=== PATIENT | female | born 1965 | race Caucasian/White ===

== ENCOUNTER 2019-06-01 12:51 | Observation (INO) | payer OTHER, MEDICAID ==
[~2019-06-01] VITALS: Ht 170.2 cm; Wt 65.9 kg
[2019-06-01 13:58] LABS: BASOPHIL % 0.8 % (0-2); PLATELET COUNT 307 x10^3mcL (130-400); RED CELL DISTRIBUTION WIDTH 14.3 % (11.5-14.5)
[2019-06-01 14:14] LABS: CALCIUM 8.8 mg/dL (8.5-10.1); CARBON DIOXIDE 22.4 mmol/L (21-32); CHLORIDE SERUM 103 mmol/L (98-107); CREATININE SERUM 0.6 mg/dL (0.6-1.0); GFR1 > 60 mL/min; GLUCOSE SERUM 294 mg/dL (74-106); POTASSIUM SERUM 4.5 mmol/L (3.5-5.1); SODIUM SERUM 139 mmol/L (136-145)
[2019-06-01 14:19] LABS: ALBUMIN 3.6 g/dL (3.4-5.0); ALKALINE PHOSPHATASE 96 U/L (46-116); ALT/SGPT 18 U/L (14-59); AST/SGOT 27 U/L (15-37); BILIRUBIN TOTAL 0.6 mg/dL (0.20-1.00); TOTAL PROTEIN, SERUM 6.5 g/dL (6.4-8.2)
[2019-06-01] MEDS ORDERED: RANEXA1000 M2 PO (16:01)
[2019-06-01] MEDS ORDERED: SYNTHROID0.175 MG PO (16:03)
[2019-06-01] MEDS ORDERED: SEROQUEL200 MG PO (16:03)
[2019-06-01] MEDS ORDERED: ATORVASTATIN CA40 M1 PO (16:04)
[2019-06-01] MEDS ORDERED: COREG12.5 MG PO (16:04)
[2019-06-01] MEDS ORDERED: NOR10T PO (16:04)
[2019-06-01] MEDS ORDERED: NITROGLYCERIN0.4 MG SL (16:05)
[2019-06-01] MEDS ORDERED: PANTOPRAZOLE SO40 M1 PO (16:05)
[2019-06-01 16:38] VITALS: BP 145/81
[2019-06-01 16:43] VITALS: Ht 170.2 cm; Wt 65.9 kg
[2019-06-01 21:08] VITALS: BP 104/51
[2019-06-02 05:38] VITALS: BP 108/62
[2019-06-02 07:24] LABS: T3 TOTAL 0.71 ng/mL
[2019-06-02 07:34] LABS: CARBON DIOXIDE 25.7 mmol/L (21-32); CHLORIDE SERUM 107 mmol/L (98-107); CREATININE SERUM 0.6 mg/dL (0.6-1.0); GFR1 > 60 mL/min; GLUCOSE SERUM 180 mg/dL (74-106); MAGNESIUM 1.9 mg/dL (1.8-2.4); POTASSIUM SERUM 3.7 mmol/L (3.5-5.1); SODIUM SERUM 143 mmol/L (136-145)
[2019-06-02 07:37] LABS: BASOPHIL % 0.6 % (0-2); PLATELET COUNT 284 x10^3mcL (130-400); RED CELL DISTRIBUTION WIDTH 14.3 % (11.5-14.5)
[2019-06-02 07:52] LABS: FREE T4 1.31 ng/dL (0.76-1.46); FREE THYROXINE INDEX 3.2 ug/dL (1.4-4.5); T4(THYROXINE) 8.3 ug/dL (4.7-13.3)
[2019-06-02] MEDS ORDERED: BRILINTA90 M1 PO (09:42)
[2019-06-02 12:09] VITALS: BP 126/69
[2019-06-02 13:55] VITALS: BP 116/67
[2019-06-02 17:06] VITALS: BP 146/46
[2019-06-02 20:27] VITALS: BP 107/67
== END 2019-06-02 22:30 | disposition short-term general hospital (02) | DRG 311 ==
LOC: ED 12:51 → DU 15:27
PROVIDERS: Emergency Medicine; ADMIT Internal Medicine Pulmonary Disease
DX: I24.9 Acute ischemic heart disease, unspecified (principal); I11.9 Hypertensive heart disease without heart failure; I25.10 Atherosclerotic heart disease of native coronary artery without angina pectoris; F17.218 Nicotine dependence, cigarettes, with other nicotine-induced disorders; E11.9 Type 2 diabetes mellitus without complications; Z95.5 Presence of coronary angioplasty implant and graft
CPT/HCPCS: 82962; 84439; G0378; J1885; J2270; J2405; Q0092

== ENCOUNTER 2019-10-13 14:06 | Observation (INO) | payer OTHER, MEDICAID ==
[~2019-10-13] VITALS: Ht 170.2 cm; Wt 68.0 kg
[~2019-10-13 14:06] MED LIST: ATORVASTATIN CA40 M1 PO; BRILINTA90 M1 PO; COREG12.5 MG PO; NITROGLYCERIN0.4 MG SL; NOR10T PO; PANTOPRAZOLE SO40 M1 PO; RANEXA1000 M2 PO; SEROQUEL200 MG PO; SYNTHROID0.175 MG PO
[2019-10-13 14:26] VITALS: Ht 170.2 cm; Wt 68.0 kg
[2019-10-13 16:23] LABS: BASOPHIL % 0.6 % (0-2); PLATELET COUNT 330 x10^3mcL (130-400)
[2019-10-13 16:32] LABS: CALCIUM 9.8 mg/dL (8.5-10.1); CARBON DIOXIDE 26.5 mmol/L (21-32); CHLORIDE SERUM 103 mmol/L (98-107); CREATININE SERUM 0.7 mg/dL (0.6-1.0); GFR1 > 60 mL/min; GLUCOSE SERUM 88 mg/dL (74-106); POTASSIUM SERUM 3.8 mmol/L (3.5-5.1); SODIUM SERUM 140 mmol/L (136-145)
[2019-10-13] MEDS ORDERED: TRULICITY0.75 MG/0. (18:42)
[2019-10-13] MEDS ORDERED: LANTI (18:44)
[2019-10-13] MEDS ORDERED: COREG3.125 MG (18:45)
[2019-10-13] MEDS ORDERED: LIPITOR10 MG (18:45)
[2019-10-13] MEDS ORDERED: NOVOLOG100 U/ML (18:45)
[2019-10-13] MEDS ORDERED: PROTONIX20 MG (18:45)
[2019-10-13] MEDS ORDERED: ASPIR 8181 MG (18:45)
[2019-10-13] MEDS ORDERED: MOBIC7.5 MG (18:46)
[2019-10-13 23:58] VITALS: BP 123/80
[2019-10-14 06:19] VITALS: BP 94/61
[2019-10-14 07:18] LABS: BASOPHIL % 0.9 % (0-2); PLATELET COUNT 256 x10^3mcL (130-400); RED CELL DISTRIBUTION WIDTH 13.8 % (11.5-14.5)
[2019-10-14 07:35] LABS: ALKALINE PHOSPHATASE 72 U/L (46-116); ALT/SGPT 36 U/L (14-59); AST/SGOT 25 U/L (15-37); BILIRUBIN TOTAL 0.3 mg/dL (0.20-1.00); CALCIUM 8.1 mg/dL (8.5-10.1); CARBON DIOXIDE 27.9 mmol/L (21-32); CHLORIDE SERUM 107 mmol/L (98-107); CREATININE SERUM 0.8 mg/dL (0.6-1.0); GFR1 > 60 mL/min; GLUCOSE SERUM 105 mg/dL (74-106); MAGNESIUM 1.8 mg/dL (1.8-2.4); POTASSIUM SERUM 3.8 mmol/L (3.5-5.1); SODIUM SERUM 143 mmol/L (136-145)
[2019-10-14 07:43] LABS: ALBUMIN 3.1 g/dL (3.4-5.0)
[2019-10-14 09:08] VITALS: BP 114/63
[2019-10-14 09:45] VITALS: BP 100/66
[2019-10-14] MEDS ORDERED: ALEVE220 M1 PO (11:47)
[2019-10-14 11:57] VITALS: BP 100/66
[2019-10-14 12:29] VITALS: BP 121/69
== END 2019-10-14 13:11 | disposition home or self-care (01) ==
LOC: ED 14:06 → DU 18:52
PROVIDERS: Emergency Medicine; Internal Medicine Pulmonary Disease; ADMIT Hospitalist
DX: R55 Syncope and collapse (principal); I25.10 Atherosclerotic heart disease of native coronary artery without angina pectoris; E11.9 Type 2 diabetes mellitus without complications; G89.29 Other chronic pain; M25.552 Pain in left hip; R07.89 Other chest pain; M51.36 Other intervertebral disc degeneration, lumbar region; E78.5 Hyperlipidemia, unspecified; E03.9 Hypothyroidism, unspecified; F41.9 Anxiety disorder, unspecified; Z23 Encounter for immunization
CPT/HCPCS: 82962; 83880; 90732; C9113; G0378; J1644; J2270; J2405; J7030

== ENCOUNTER 2019-10-17 12:10 | Emergency (ER) | payer OTHER, MEDICAID ==
[~2019-10-17] VITALS: Ht 167.6 cm; Wt 67.1 kg
[~2019-10-17 12:10] MED LIST changes: +ALEVE220 M1 PO; +ASPIR 8181 MG; +COREG3.125 MG; +LANTI; +LIPITOR10 MG; +MOBIC7.5 MG; +NOVOLOG100 U/ML; +PROTONIX20 MG; +TRULICITY0.75 MG/0.
[2019-10-17 12:54] VITALS: Ht 167.6 cm; Wt 67.1 kg
[2019-10-17 15:10] VITALS: BP 96/79
== END 2019-10-17 15:10 | disposition home or self-care (01) ==
LOC: ED 12:10
DX: M54.5 Low back pain (principal); M25.552 Pain in left hip; G89.29 Other chronic pain; R26.2 Difficulty in walking, not elsewhere classified; E11.9 Type 2 diabetes mellitus without complications; Z88.1 Allergy status to other antibiotic agents; Z88.8 Allergy status to other drugs, medicaments and biological substances
CPT/HCPCS: J1885; J2270

== ENCOUNTER 2019-10-25 17:25 | Observation (INO) | payer OTHER, MEDICAID ==
[~2019-10-25] VITALS: Ht 167.6 cm; Wt 69.5 kg
[2019-10-25 17:50] VITALS: Ht 167.6 cm; Wt 69.5 kg
[2019-10-25 19:02] LABS: BASOPHIL % 1.2 % (0-2); PLATELET COUNT 297 x10^3mcL (130-400); RED CELL DISTRIBUTION WIDTH 13.9 % (11.5-14.5)
[2019-10-25 19:07] LABS: CALCIUM 9.4 mg/dL (8.5-10.1); CARBON DIOXIDE 25.9 mmol/L (21-32); CHLORIDE SERUM 102 mmol/L (98-107); CREATININE SERUM 0.8 mg/dL (0.6-1.0); GFR1 > 60 mL/min; GLUCOSE SERUM 246 mg/dL (74-106); POTASSIUM SERUM 4.4 mmol/L (3.5-5.1); SODIUM SERUM 137 mmol/L (136-145)
[2019-10-25 19:12] LABS: ALBUMIN 3.9 g/dL (3.4-5.0); ALKALINE PHOSPHATASE 100 U/L (46-116); ALT/SGPT 27 U/L (14-59); AST/SGOT 14 U/L (15-37); BILIRUBIN TOTAL 0.3 mg/dL (0.20-1.00); TOTAL PROTEIN, SERUM 7.4 g/dL (6.4-8.2)
[2019-10-25] MEDS ORDERED: LANTI SQ (19:54)
[2019-10-25] MEDS ORDERED: COREG12.5 MG PO (19:56)
[2019-10-25] MEDS ORDERED: LIPITOR40 MG PO (19:56)
[2019-10-25] MEDS ORDERED: ASPIRIN ADULT L81 M5 PO (19:56)
[2019-10-25] MEDS ORDERED: CYMBALTA60 M1 PO (19:56)
[2019-10-25] MEDS ORDERED: PRO40 PO (19:56)
[2019-10-25] MEDS ORDERED: NOVI SQ (19:56)
[2019-10-25] MEDS ORDERED: RANEXA1000 M2 PO (19:57)
[2019-10-25] MEDS ORDERED: NORCO 10-325 T1 EACH PO (19:57)
[2019-10-25] MEDS ORDERED: TIROSINT150 MC1 PO (19:57)
[2019-10-25] MEDS ORDERED: SERO100 PO (19:57)
[2019-10-25] MEDS ORDERED: MORPHABOND ER15 MG PO (19:57)
[2019-10-25 21:15] VITALS: BP 117/74
[2019-10-26 01:07] VITALS: BP 150/66
[2019-10-26 05:49] VITALS: BP 107/67
[2019-10-26 09:16] VITALS: BP 109/68
[2019-10-26 13:14] VITALS: BP 117/69
[2019-10-26 17:04] VITALS: BP 100/61
[2019-10-26 21:17] VITALS: BP 91/62
[2019-10-27 05:58] VITALS: BP 114/68
[2019-10-27 06:28] LABS: PLATELET COUNT 232 x10^3mcL (130-400); RED CELL DISTRIBUTION WIDTH 13.7 % (11.5-14.5)
[2019-10-27 06:58] LABS: ALBUMIN 4.2 g/dL (3.4-5.0); ALKALINE PHOSPHATASE 76 U/L (46-116); ALT/SGPT 26 U/L (14-59); AST/SGOT 17 U/L (15-37); BILIRUBIN TOTAL 0.57 mg/dL (0.20-1.00); CALCIUM 9.4 mg/dL (8.5-10.1); CARBON DIOXIDE 32.6 mmol/L (21-32); CHLORIDE SERUM 102 mmol/L (98-107); GFR1 > 60 mL/min; GLUCOSE SERUM 186 mg/dL (74-106); POTASSIUM SERUM 3.7 mmol/L (3.5-5.1); SODIUM SERUM 141 mmol/L (136-145); TOTAL PROTEIN, SERUM 7.3 g/dL (6.4-8.2)
[2019-10-27 07:24] VITALS: BP 84/53
[2019-10-27] MEDS ORDERED: FIORICET1 CAP PO (09:58)
[2019-10-27] MEDS ORDERED: TREXIMET1 TAB PO (09:58)
[2019-10-27 10:35] VITALS: BP 126/71
[2019-10-27 11:17] VITALS: BP 126/71
== END 2019-10-27 12:15 | disposition home or self-care (01) ==
LOC: ED 17:25 → DU 19:57
PROVIDERS: Emergency Medicine; ADMIT Internal Medicine Pulmonary Disease
DX: R07.89 Other chest pain (principal); E11.9 Type 2 diabetes mellitus without complications; I10 Essential (primary) hypertension; G43.909 Migraine, unspecified, not intractable, without status migrainosus; F32.9 Major depressive disorder, single episode, unspecified; I25.10 Atherosclerotic heart disease of native coronary artery without angina pectoris
CPT/HCPCS: 82962; 83880; C9113; G0378; J1815; J1940; J2405; J7030; P9047

== ENCOUNTER 2019-11-03 16:25 | Observation (INO) | payer OTHER, MEDICAID ==
[~2019-11-03] VITALS: Ht 167.6 cm; Wt 73.5 kg
[~2019-11-03 16:25] MED LIST changes: +ASPIRIN ADULT L81 M5 PO; +CYMBALTA60 M1 PO; +FIORICET1 CAP PO; +LANTI SQ; +LIPITOR40 MG PO; +MORPHABOND ER15 MG PO; +NORCO 10-325 T1 EACH PO; +NOVI SQ; +PRO40 PO; +SERO100 PO; +TIROSINT150 MC1 PO; +TREXIMET1 TAB PO
[2019-11-03 17:12] LABS: BASOPHIL % 0.4 % (0-2); PLATELET COUNT 239 x10^3mcL (130-400); RED CELL DISTRIBUTION WIDTH 14.3 % (11.5-14.5)
[2019-11-03 17:23] LABS: CALCIUM 9.3 mg/dL (8.5-10.1); CARBON DIOXIDE 33.7 mmol/L (21-32); CHLORIDE SERUM 105 mmol/L (98-107); CREATININE SERUM 0.8 mg/dL (0.6-1.0); GFR1 > 60 mL/min; GLUCOSE SERUM 99 mg/dL (74-106); POTASSIUM SERUM 3.8 mmol/L (3.5-5.1); SODIUM SERUM 145 mmol/L (136-145)
[2019-11-03 17:28] LABS: ALKALINE PHOSPHATASE 83 U/L (46-116); ALT/SGPT 39 U/L (14-59); AST/SGOT 31 U/L (15-37); BILIRUBIN TOTAL 0.6 mg/dL (0.20-1.00); TOTAL PROTEIN, SERUM 7.3 g/dL (6.4-8.2)
[2019-11-03] MEDS ORDERED: DESOXYN5 MG PO (18:17)
[2019-11-03 20:00] VITALS: BP 94/51
[2019-11-03 20:28] VITALS: Ht 167.6 cm; Wt 73.5 kg
[2019-11-03 21:17] VITALS: BP 94/53
[2019-11-04 03:52] VITALS: BP 107/68
[2019-11-04 05:52] LABS: BASOPHIL % 0.8 % (0-2); PLATELET COUNT 223 x10^3mcL (130-400)
[2019-11-04 06:18] LABS: ALBUMIN 3.4 g/dL (3.4-5.0); ALKALINE PHOSPHATASE 59 U/L (46-116); ALT/SGPT 32 U/L (14-59); AST/SGOT 26 U/L (15-37); BILIRUBIN TOTAL 0.4 mg/dL (0.20-1.00); CALCIUM 8.4 mg/dL (8.5-10.1); CARBON DIOXIDE 33.9 mmol/L (21-32); CHLORIDE SERUM 104 mmol/L (98-107); CREATININE SERUM 0.7 mg/dL (0.6-1.0); GFR1 > 60 mL/min; GLUCOSE SERUM 126 mg/dL (74-106); SODIUM SERUM 141 mmol/L (136-145); TOTAL PROTEIN, SERUM 6.3 g/dL (6.4-8.2)
[2019-11-04 06:24] LABS: RED CELL DISTRIBUTION WIDTH 14.6 % (11.5-14.5)
[2019-11-04 07:53] VITALS: BP 112/65
[2019-11-04 11:51] VITALS: BP 100/63
[2019-11-04 13:02] LABS: microscopic required? NO
[2019-11-04 13:31] LABS: UA SPECIFIC GRAVITY <=1.005 (1.005-1.035); urine erythrocyte NEGATIVE (NEGATIVE)
[2019-11-04 13:45] VITALS: BP 100/63
== END 2019-11-04 14:50 | disposition home or self-care (01) ==
LOC: ED 16:25 → DU 19:01
PROVIDERS: Emergency Medicine; Hospitalist; ADMIT Internal Medicine Pulmonary Disease
DX: T40.601A Poisoning by unspecified narcotics, accidental (unintentional), initial encounter (principal); E11.9 Type 2 diabetes mellitus without complications; I10 Essential (primary) hypertension; G47.00 Insomnia, unspecified; F32.9 Major depressive disorder, single episode, unspecified; G89.29 Other chronic pain; M54.9 Dorsalgia, unspecified; E78.5 Hyperlipidemia, unspecified; E03.9 Hypothyroidism, unspecified; G93.41 Metabolic encephalopathy; R30.0 Dysuria; I25.10 Atherosclerotic heart disease of native coronary artery without angina pectoris
CPT/HCPCS: 36600; 82962; 83880; G0378; J1644; J3490; Q0092

== ENCOUNTER 2019-11-10 15:12 | Emergency (ER) | payer OTHER, MEDICAID ==
[~2019-11-10] VITALS: Ht 170.2 cm; Wt 69.9 kg
[~2019-11-10 15:12] MED LIST changes: +DESOXYN5 MG PO
[2019-11-10 15:15] VITALS: Ht 170.2 cm; Wt 69.9 kg
[2019-11-10 17:04] LABS: CALCIUM 9.5 mg/dL (8.5-10.1); CARBON DIOXIDE 24.2 mmol/L (21-32); CHLORIDE SERUM 102 mmol/L (98-107); CREATININE SERUM 0.8 mg/dL (0.6-1.0); GFR1 > 60 mL/min; GLUCOSE SERUM 234 mg/dL (74-106); POTASSIUM SERUM 3.9 mmol/L (3.5-5.1); SODIUM SERUM 139 mmol/L (136-145)
[2019-11-10 17:06] LABS: BASOPHIL % 0.6 % (0-2); PLATELET COUNT 273 x10^3mcL (130-400); RED CELL DISTRIBUTION WIDTH 14.7 % (11.5-14.5)
[2019-11-10 17:10] LABS: ALBUMIN 3.8 g/dL (3.4-5.0); ALKALINE PHOSPHATASE 80 U/L (46-116); ALT/SGPT 29 U/L (14-59); AST/SGOT 12 U/L (15-37); BILIRUBIN TOTAL 0.4 mg/dL (0.20-1.00); TOTAL PROTEIN, SERUM 7.1 g/dL (6.4-8.2)
[2019-11-10 18:48] VITALS: BP 142/73
== END 2019-11-10 18:48 | disposition home or self-care (01) ==
LOC: ED 15:12
PROVIDERS: Emergency Medicine
DX: R07.89 Other chest pain (principal); G89.29 Other chronic pain; R20.0 Anesthesia of skin; R50.9 Fever, unspecified; R11.10 Vomiting, unspecified; R19.7 Diarrhea, unspecified; R05 Cough; M54.9 Dorsalgia, unspecified; E11.9 Type 2 diabetes mellitus without complications; Z90.49 Acquired absence of other specified parts of digestive tract; Z98.890 Other specified postprocedural states; Z88.1 Allergy status to other antibiotic agents; Z88.8 Allergy status to other drugs, medicaments and biological substances
CPT/HCPCS: 83880; J2270; J2405; J7030; Q0092

== ENCOUNTER 2019-12-07 19:00 | Emergency (ER) | payer OTHER, MEDICAID ==
[2019-12-07 20:46] LABS: BASOPHIL % 0.6 % (0-2); PLATELET COUNT 259 x10^3mcL (130-400); RED CELL DISTRIBUTION WIDTH 14.5 % (11.5-14.5)
[2019-12-07 20:55] LABS: CALCIUM 9.8 mg/dL (8.5-10.1); CARBON DIOXIDE 26.1 mmol/L (21-32); CHLORIDE SERUM 100 mmol/L (98-107); CREATININE SERUM 0.8 mg/dL (0.6-1.0); GFR1 > 60 mL/min; GLUCOSE SERUM 239 mg/dL (74-106); POTASSIUM SERUM 3.2 mmol/L (3.5-5.1); SODIUM SERUM 137 mmol/L (136-145)
[2019-12-07 21:00] LABS: ALKALINE PHOSPHATASE 94 U/L (46-116); ALT/SGPT 41 U/L (14-59); AST/SGOT 18 U/L (15-37); BILIRUBIN TOTAL 0.3 mg/dL (0.20-1.00); TOTAL PROTEIN, SERUM 7.4 g/dL (6.4-8.2)
[2019-12-07 22:54] VITALS: BP 135/79
== END 2019-12-07 22:54 | disposition home or self-care (01) ==
LOC: ED 19:00
PROVIDERS: Emergency Medicine
DX: R07.89 Other chest pain (principal); R05 Cough; R09.89 Other specified symptoms and signs involving the circulatory and respiratory systems; R51 Headache; E11.9 Type 2 diabetes mellitus without complications; G89.29 Other chronic pain; Z98.890 Other specified postprocedural states; Z90.89 Acquired absence of other organs; Z90.49 Acquired absence of other specified parts of digestive tract; Z88.1 Allergy status to other antibiotic agents; Z88.8 Allergy status to other drugs, medicaments and biological substances
CPT/HCPCS: 36415; 83880; 87804; Q0092

== ENCOUNTER 2020-05-29 15:34 | Observation (INO) | payer OTHER, MEDICAID, SELFPAY ==
[~2020-05-29] VITALS: Ht 167.6 cm; Wt 68.0 kg
[2020-05-29 15:36] VITALS: Ht 167.6 cm; Wt 68.0 kg
[2020-05-29 16:45] LABS: BASOPHIL % 0.6 % (0-2); PLATELET COUNT 255 x10^3mcL (130-400); RED CELL DISTRIBUTION WIDTH 14.1 % (11.5-14.5)
[2020-05-29 17:01] LABS: ALBUMIN 3.7 g/dL (3.4-5.0); ALKALINE PHOSPHATASE 85 U/L (46-116); ALT/SGPT 21 U/L (14-59); AST/SGOT 13 U/L (15-37); BILIRUBIN TOTAL 0.4 mg/dL (0.20-1.00); C REACTIVE PROTEIN 0.2 mg/dL (<=0.9); CALCIUM 8.8 mg/dL (8.5-10.1); CARBON DIOXIDE 26.1 mmol/L (21-32); CHLORIDE SERUM 97 mmol/L (98-107); CREATININE SERUM 0.8 mg/dL (0.6-1.0); GFR1 > 60 mL/min; GLUCOSE SERUM 269 mg/dL (74-106); LACTIC DEHYDROGENASE (LDH) 141 U/L (100-190); SODIUM SERUM 133 mmol/L (136-145); TOTAL PROTEIN, SERUM 6.8 g/dL (6.4-8.2)
[2020-05-29 17:54] LABS: microscopic required? NO
[2020-05-29 18:20] LABS: UA SPECIFIC GRAVITY <=1.005 (1.005-1.035); urine erythrocyte NEGATIVE (NEGATIVE)
[2020-05-29 21:37] VITALS: BP 126/61
[2020-05-30 00:05] VITALS: BP 129/69
[2020-05-30 05:41] VITALS: BP 127/79
[2020-05-30 06:55] LABS: BASOPHIL % 0.9 % (0-2); PLATELET COUNT 270 x10^3mcL (130-400); RED CELL DISTRIBUTION WIDTH 14.2 % (11.5-14.5)
[2020-05-30 07:40] LABS: CALCIUM 8.5 mg/dL (8.5-10.1); CARBON DIOXIDE 24.6 mmol/L (21-32); CHLORIDE SERUM 106 mmol/L (98-107); CREATININE SERUM 0.6 mg/dL (0.6-1.0); GFR1 > 60 mL/min; GLUCOSE SERUM 110 mg/dL (74-106); POTASSIUM SERUM 3.8 mmol/L (3.5-5.1); SODIUM SERUM 141 mmol/L (136-145)
[2020-05-30 08:19] VITALS: BP 118/74
[2020-05-30 11:55] VITALS: BP 110/73
[2020-05-30 19:51] VITALS: BP 118/67
[2020-05-31 04:55] VITALS: BP 121/61
[2020-05-31 06:35] LABS: BASOPHIL % 1.4 % (0-2); PLATELET COUNT 242 x10^3mcL (130-400)
[2020-05-31 06:45] LABS: CALCIUM 8.8 mg/dL (8.5-10.1); CARBON DIOXIDE 27.1 mmol/L (21-32); CHLORIDE SERUM 106 mmol/L (98-107); CREATININE SERUM 0.6 mg/dL (0.6-1.0); GFR1 > 60 mL/min; GLUCOSE SERUM 136 mg/dL (74-106); MAGNESIUM 1.7 mg/dL (1.8-2.4); POTASSIUM SERUM 3.9 mmol/L (3.5-5.1); SODIUM SERUM 140 mmol/L (136-145)
[2020-05-31 08:30] VITALS: BP 134/75
[2020-05-31 12:16] VITALS: BP 118/54
[2020-05-31] MEDS ORDERED: CARL PO (15:55)
[2020-05-31] MEDS ORDERED: PROT40I PO (15:56)
[2020-05-31] MEDS ORDERED: ZOFRAN4 M3 PO (15:56)
[2020-05-31 17:11] VITALS: BP 134/63
== END 2020-05-31 17:30 | disposition home or self-care (01) ==
LOC: ED 15:34 → DU 17:53
PROVIDERS: Emergency Medicine; Hospitalist; ADMIT Hospitalist; ATTEND Hospitalist
DX: R07.89 Other chest pain (principal); E87.6 Hypokalemia; I25.10 Atherosclerotic heart disease of native coronary artery without angina pectoris; E11.9 Type 2 diabetes mellitus without complications; Z20.828 Contact with and (suspected) exposure to other viral communicable diseases
CPT/HCPCS: 36600; 82962; 83880; 85378; 87804; C9113; G0378; J0456; J2270; J2405; J3475; J7030; Q0092; U0003-CS

== ENCOUNTER 2020-06-23 17:46 | Observation (INO) | payer OTHER, MEDICAID, SELFPAY ==
[~2020-06-23] VITALS: Ht 167.6 cm; Wt 69.1 kg
[~2020-06-23 17:46] MED LIST changes: +CARL PO; +PROT40I PO; +ZOFRAN4 M3 PO
[2020-06-23 17:47] VITALS: Ht 167.6 cm; Wt 69.1 kg
[2020-06-24] MEDS ORDERED: NOR10T PO (02:08)
[2020-06-24] MEDS ORDERED: SYNTHROID0.175 MG PO (02:10)
[2020-06-24] MEDS ORDERED: CYMBALTA60 M1 PO (02:14)
[2020-06-24] MEDS ORDERED: COREG CR10 M1 PO (02:16)
[2020-06-24] MEDS ORDERED: RANEXA1000 M2 PO (02:21)
[2020-06-24 02:42] LABS: microscopic required? NO
[2020-06-24 02:45] LABS: UA SPECIFIC GRAVITY <=1.005 (1.005-1.035); urine erythrocyte NEGATIVE (NEGATIVE)
[2020-06-24 02:59] LABS: ALBUMIN 3.8 g/dL (3.4-5.0); CARBON DIOXIDE 24.7 mmol/L (21-32); CHLORIDE SERUM 104 mmol/L (98-107); CREATININE SERUM 0.8 mg/dL (0.6-1.0); GFR1 > 60 mL/min; GLUCOSE SERUM 76 mg/dL (74-106); POTASSIUM SERUM 4.2 mmol/L (3.5-5.1); SODIUM SERUM 141 mmol/L (136-145); TOTAL PROTEIN, SERUM 6.8 g/dL (6.4-8.2)
[2020-06-24 03:00] LABS: ALKALINE PHOSPHATASE 73 U/L (46-116); ALT/SGPT 18 U/L (14-59); AST/SGOT 13 U/L (15-37); BILIRUBIN TOTAL 0.6 mg/dL (0.20-1.00); CALCIUM 8.8 mg/dL (8.5-10.1)
[2020-06-24 03:37] VITALS: BP 111/69
[2020-06-24 04:51] LABS: BASOPHIL % 0.4 % (0-2); PLATELET COUNT 238 x10^3mcL (130-400)
[2020-06-24 05:42] VITALS: BP 106/65
[2020-06-24 08:22] VITALS: BP 120/75
[2020-06-24 12:59] VITALS: BP 91/56
[2020-06-24 16:24] VITALS: BP 116/69
[2020-06-24] MEDS ORDERED: MP PO (18:22)
[2020-06-24 19:12] VITALS: BP 116/69
== END 2020-06-24 20:20 | disposition home or self-care (01) ==
LOC: ED 17:46 → DU 06-24 00:11
PROVIDERS: Student in an Organized Health Care Education/Training Program; ADMIT Internal Medicine; ATTEND Internal Medicine
DX: I25.10 Atherosclerotic heart disease of native coronary artery without angina pectoris (principal); I10 Essential (primary) hypertension; E11.9 Type 2 diabetes mellitus without complications; R07.89 Other chest pain; R06.02 Shortness of breath; R11.0 Nausea; Z20.828 Contact with and (suspected) exposure to other viral communicable diseases
CPT/HCPCS: 82962; 85378; G0378; J1644; J1815; J2270; J2405; J7040; Q0092; U0003-CS

== ENCOUNTER 2020-07-27 12:35 | Emergency (ER) | payer OTHER, MEDICAID, SELFPAY ==
[~2020-07-27] VITALS: Ht 172.7 cm; Wt 68.5 kg
[~2020-07-27 12:35] MED LIST changes: +COREG CR10 M1 PO; +MP PO
[2020-07-27 12:39] VITALS: Ht 172.7 cm; Wt 68.5 kg
[2020-07-27 15:08] LABS: BASOPHIL % 0.8 % (0-2); PLATELET COUNT 377 x10^3mcL (130-400)
[2020-07-27 15:33] LABS: CALCIUM 9.7 mg/dL (8.5-10.1); CARBON DIOXIDE 30.9 mmol/L (21-32); CHLORIDE SERUM 103 mmol/L (98-107); CREATININE SERUM 0.8 mg/dL (0.6-1.0); GFR1 > 60 mL/min; GLUCOSE SERUM 245 mg/dL (74-106); POTASSIUM SERUM 4.1 mmol/L (3.5-5.1); SODIUM SERUM 139 mmol/L (136-145)
[2020-07-27 15:37] LABS: ALBUMIN 4.4 g/dL (3.4-5.0); ALKALINE PHOSPHATASE 99 U/L (46-116); ALT/SGPT 23 U/L (14-59); AST/SGOT 15 U/L (15-37); BILIRUBIN TOTAL 0.5 mg/dL (0.20-1.00); TOTAL PROTEIN, SERUM 7.5 g/dL (6.4-8.2)
[2020-07-27 16:54] VITALS: BP 127/70
== END 2020-07-27 16:40 | disposition home or self-care (01) ==
LOC: ED 12:35
PROVIDERS: Emergency Medicine
DX: E11.65 Type 2 diabetes mellitus with hyperglycemia (principal); G44.209 Tension-type headache, unspecified, not intractable; Z20.828 Contact with and (suspected) exposure to other viral communicable diseases; G89.29 Other chronic pain; Z90.49 Acquired absence of other specified parts of digestive tract; Z98.890 Other specified postprocedural states; Z88.1 Allergy status to other antibiotic agents; Z88.8 Allergy status to other drugs, medicaments and biological substances
CPT/HCPCS: 82962; J3010; J7030; U0003

== ENCOUNTER 2020-08-27 15:20 | Emergency (ER) | payer OTHER, MEDICAID ==
[~2020-08-27] VITALS: Ht 170.2 cm; Wt 65.8 kg
[2020-08-27 15:36] VITALS: BP 117/70; Ht 170.2 cm; Wt 65.8 kg
[2020-08-27 16:58] LABS: BASOPHIL % 0.4 % (0.2-1.3); PLATELET COUNT 347 x10^3mcL (179-408); RED CELL DISTRIBUTION WIDTH 13.7 % (12.3-17.7)
[2020-08-27 17:07] LABS: CALCIUM 9.4 mg/dL (8.5-10.1); CARBON DIOXIDE 25.7 mmol/L (21-32); CREATININE SERUM 1.1 mg/dL (0.6-1.0); POTASSIUM SERUM 4.1 mmol/L (3.5-5.1)
== END 2020-08-28 01:58 | disposition home or self-care (01) ==
LOC: ED 15:20
PROVIDERS: Emergency Medicine
DX: E11.9 Type 2 diabetes mellitus without complications (principal); G89.29 Other chronic pain; M54.9 Dorsalgia, unspecified; Z53.1 Procedure and treatment not carried out because of patient's decision for reasons of belief and group pressure; Z90.49 Acquired absence of other specified parts of digestive tract
CPT/HCPCS: 82962; J1885; J2270; J2405; J7030

== ENCOUNTER 2020-10-09 11:44 | Emergency (ER) | payer OTHER, MEDICAID ==
[~2020-10-09] VITALS: Ht 170.2 cm; Wt 68.5 kg
[2020-10-09 11:59] VITALS: Ht 170.2 cm; Wt 68.5 kg
[2020-10-09 15:55] VITALS: BP 104/70
== END 2020-10-09 15:55 | disposition home or self-care (01) ==
LOC: ED 11:44
DX: G43.909 Migraine, unspecified, not intractable, without status migrainosus (principal); E11.9 Type 2 diabetes mellitus without complications; G89.29 Other chronic pain; Z88.1 Allergy status to other antibiotic agents; Z88.8 Allergy status to other drugs, medicaments and biological substances; Z20.822 Contact with and (suspected) exposure to COVID-19
CPT/HCPCS: J1885; J2765; Q9967; U0003